=== PATIENT | male | born 1980 ===

== ENCOUNTER 2018-09-03 10:08 | Emergency (ER) | payer BC, OTHER ==
--- NOTE | 2018-09-03 11:12 | EDM.PDOC ---
ED HPI GENERAL MEDICAL PROBLEM - General Chief Complaint: General Stated Complaint: RAPID HEART RATE X 3 WEEKS Time Seen by Provider: 09/03/18 10:40 Source of Information: Reports: Patient, Family (), RN Notes Reviewed History Limitations: Reports: No Limitations - History of Present Illness INITIAL COMMENTS - FREE TEXT/NARRATIVE: The patient states that he developed pain to a relatively distinct area on his anterior right neck, just inferior to his larynx, about 3 weeks ago, which has persisted. 2-1/2 weeks ago he developed a fever, with a Tmax of 102.8, generalized body aches, fatigue, increased sleepiness, anorexia, and the sensation of tachycardia. The generalized weakness and fever resolved about 3 days ago, but the other symptoms have persisted. He states that he has had some shortness of breath on and off. He denies prior similar symptoms, although he states that he has had the sensation of palpitations and lightheadedness on and off for many years. He reports that the fingers of both of his hands got very pale a few days ago, and he notes that his mother has Raynaud's syndrome. He denies having a recent cough, chest pain, abdominal pain nausea, vomiting, constipation, diarrhea, or urinary symptoms. No tingling or numbness. He denies a sensation of walking on rubber legs. No prior medical evaluation for this complaint. The patient states that he does not take any prescribed medications on a regular basis, but that he has been taking ibuprofen twice a day, and an occasional Tylenol, to treat his fever and body aches. The patient does not have a PCP. Generalized Pain Score (Numeric/FACES): 3 - Related Data Allergies Allergy/AdvReac Type Severity Reaction Status Date / Time No Known Allergies Allergy Verified 09/03/18 10:27 Home Meds: Home Meds Propranolol [Inderal] 1 tab PO Q8H #20 tab 09/03/18 [Rx] Past Medical History HEENT History: Reports: Impaired Vision Other HEENT History: wears glasses - Past Surgical History HEENT Surgical History: Reports: Naso-Sinus Surgery (rhinoplasty), Oral Surgery (wisdom teeth extraction), Tonsillectomy Social & Family History - Tobacco Use Smoking Status *Q: Former Smoker Years of Tobacco use: 4 Packs/Tins Daily: 0.5 Month/Year Tobacco Last Used: Quit 2000 - Alcohol Use Alcohol Use History: No - Recreational Drug Use Recreational Drug Use: Yes Drug Use in Last 12 Months: No Recreational Drug Type: Reports: Marijuana/Hashish (Last smoked around 1999) - Living Situation & Occupation Living situation: Reports: , with Spouse, with Family (4 kids) Occupation: Employed ([employer]) ED ROS GENERAL - Review of Systems Review Of Systems: ROS reveals no pertinent complaints other than HPI. ED EXAM, GENERAL - Physical Exam Exam: See Below Exam Limited By: No Limitations General Appearance: Alert, No Apparent Distress, Thin, Other (Marfanoid appearance) Eye Exam: Bilateral Eye: EOMI, Normal Inspection Ears: Normal External Exam, Normal Canal, Hearing Grossly Normal, Normal TMs Nose: Normal Inspection, Normal Mucosa, No Blood Throat/Mouth: Normal Inspection, Normal Lips, Normal Teeth, Normal Gums, Normal Voice, No Airway Compromise, Other (High arched palate) Head: Atraumatic, Normocephalic Neck: Normal Inspection, Supple, Full Range of Motion, Other (Mild tenderness to the right anterior neck, just inferior to the larynx. No visible abnormalities at this site.). No: Lymphadenopathy (L), Lymphadenopathy (R) Respiratory/Chest: No Respiratory Distress, Lungs Clear, Normal Breath Sounds, No Accessory Muscle Use Cardiovascular: Normal Peripheral Pulses, No Edema, No Gallop, No JVD, No Murmur , No Rub, Tachycardia (regular) Peripheral Pulses: 4+: Radial (L), Radial (R) GI/Abdominal: Normal Bowel Sounds, Soft, Non-Tender, No Organomegaly, No Distention, No Abnormal Bruit, No Mass (Male) Exam: Deferred Rectal (Males) Exam: Deferred Back Exam: Normal Inspection, Full Range of Motion, NT Extremities: Normal Range of Motion, No Pedal Edema, Normal Capillary Refill, Other (Thumb sign negative. Wrist sign positive.) Neurological: Alert, Oriented, Normal Cognition, No Motor/Sensory Deficits Psychiatric: Normal Affect Skin Exam: Warm, Dry, Intact, Normal Color, No Rash EKG INTERPRETATION EKG Date: 09/03/18 Time: 11:26 Rhythm: Other (Sinus tachycardia) Rate (Beats/Min): 101 Portia: RAD-Right Portia Deviation P-Wave: Enlarged (LAE) QRS: Normal (LVH) ST-T: Normal QT: Normal Comparison: NA - No Prior EKG Course - Vital Signs Last Recorded V/S: Last Vital Signs Temp 36.8 C 09/03/18 10:24 Pulse 98 09/03/18 10:24 Resp 16 09/03/18 10:24 BP 128/91 H 09/03/18 10:24 Pulse Ox 100 09/03/18 10:24 Orthostatic Blood Pressure [ 125/83 Standing] Orthostatic Blood Pressure [ 134/93 Sitting] Orthostatic Blood Pressure [ 133/86 Supine] - Orders/Labs/Meds Labs: Laboratory Tests 09/03/18 09/03/18 09/03/18 Range/Units 11:25 11:25 11:25 WBC 9.28 H (4.23-9.07) K/mm3 RBC 4.58 L (4.63-6.08) M/mm3 Hgb 13.2 L (13.7-17.5) gm/L Hct 41.1 (40.1-51.0) % MCV 89.7 (79.0-92.2) fl MCH 28.8 (25.7-32.2) pg MCHC 32.1 L (32.2-35.5) g/dl RDW Std Deviation 37.7 (35.1-43.9) fL Plt Count 458 H (163-337) K/mm3 MPV 10.5 (9.4-12.3) fl Neutrophils % (Manual) 69 H (40-60) % Band Neutrophils % 0 (0-10) % Lymphocytes % (Manual) 20 (20-40) % Atypical Lymphs % 0 % Monocytes % (Manual) 10 (2-10) % Eosinophils % (Manual) 1 (0.8-7.0) % Basophils % (Manual) 0 L (0.2-1.2) Platelet Estimate Adequate RBC Morph Comment Normal D-Dimer, Quantitative 0.50 (0.19-0.50) mg/L Sodium 138 (136-145) mEq/L Potassium 4.3 (3.5-5.1) mEq/L Chloride 102 (98-107) mEq/L Carbon Dioxide 28 (21-32) mEq/L Anion Gap 12.3 (5-15) BUN 16 (7-18) mg/dL Creatinine 0.9 (0.7-1.3) mg/dL Est Cr Clr Drug Dosing 127.09 mL/min Estimated GFR (MDRD) > 60 (>60) mL/min BUN/Creatinine Ratio 17.8 (14-18) Glucose 92 (74-106) mg/dL Calcium 9.6 (8.5-10.1) mg/dL Magnesium 2.1 (1.8-2.4) mg/dl Total Bilirubin 0.7 (0.2-1.0) mg/dL AST 50 H (15-37) U/L ALT 163 H (16-63) U/L Alkaline Phosphatase 331 H (46-116) U/L Troponin I < 0.017 (0.00-0.056) ng/mL C-Reactive Protein 8.8 H* (<1.0) mg/dL Total Protein 8.4 H (6.4-8.2) g/dl Albumin 3.6 (3.4-5.0) g/dl Globulin 4.8 gm/dL Albumin/Globulin Ratio 0.8 L (1-2) Free T4 (0.76-1.46) ng/dL TSH 3rd Generation < 0.007 L (0.358-3.74) uIU/mL 09/03/18 Range/Units 16:10 WBC (4.23-9.07) K/mm3 RBC (4.63-6.08) M/mm3 Hgb (13.7-17.5) gm/L Hct (40.1-51.0) % MCV (79.0-92.2) fl MCH (25.7-32.2) pg MCHC (32.2-35.5) g/dl RDW Std Deviation (35.1-43.9) fL Plt Count (163-337) K/mm3 MPV (9.4-12.3) fl Neutrophils % (Manual) (40-60) % Band Neutrophils % (0-10) % Lymphocytes % (Manual) (20-40) % Atypical Lymphs % % Monocytes % (Manual) (2-10) % Eosinophils % (Manual) (0.8-7.0) % Basophils % (Manual) (0.2-1.2) Platelet Estimate RBC Morph Comment D-Dimer, Quantitative (0.19-0.50) mg/L Sodium (136-145) mEq/L Potassium (3.5-5.1) mEq/L Chloride (98-107) mEq/L Carbon Dioxide (21-32) mEq/L Anion Gap (5-15) BUN (7-18) mg/dL Creatinine (0.7-1.3) mg/dL Est Cr Clr Drug Dosing mL/min Estimated GFR (MDRD) (>60) mL/min BUN/Creatinine Ratio (14-18) Glucose (74-106) mg/dL Calcium (8.5-10.1) mg/dL Magnesium (1.8-2.4) mg/dl Total Bilirubin (0.2-1.0) mg/dL AST (15-37) U/L ALT (16-63) U/L Alkaline Phosphatase (46-116) U/L Troponin I (0.00-0.056) ng/mL C-Reactive Protein (<1.0) mg/dL Total Protein (6.4-8.2) g/dl Albumin (3.4-5.0) g/dl Globulin gm/dL Albumin/Globulin Ratio (1-2) Free T4 3.66 H (0.76-1.46) ng/dL TSH 3rd Generation (0.358-3.74) uIU/mL Meds: Medications Discontinued Medications Generic Name Dose Route Start Last Admin Trade Name Freq PRN Reason Stop Dose Admin Lactated Ringer's 1,000 mls @ 999 mls/hr 09/03/18 12:17 09/03/18 12:45 Ringers, Lactated IV 09/03/18 13:17 Not Given .BOLUS ONE Propranolol HCl 20 mg 09/03/18 15:54 09/03/18 16:42 Inderal PO 09/03/18 15:55 20 mg ONETIME ONE Administration - Re-Assessments/Exams Free Text/Narrative Re-Assessment/Exam: 09/03/18 11:10 The cause of the patient's symptoms is not immediately clear, but sounds viral in etiology. I have ordered orthostatics and an ECG, along with an influenza swab and blood work that includes a D-dimer and TSH level. Because of his history of fever, I also ordered a pair of blood cultures, although the patient is afebrile here in the ED. 09/03/18 12:18 The patient is orthostatic. I have ordered a 1 L bolus of LR, to be followed by repeat orthostatics. 09/03/18 12:44 Notified by Rachel BURLESON that the patient refused an IV, however, he has agreed to drink a lot of Powerade, after which we will repeat orthostatics. 09/03/18 13:20 After drinking a mixture of Powerade and water, the patient is still orthostatic. I will request additional fluid intake, followed by repeat orthostatics. 09/03/18 15:34 Following additional oral Powerade, the patient is no longer orthostatic. The patient's CBC is remarkable for a WBC count slightly elevated at 9.28, but with 0% bandemia. His hemoglobin is mildly elevated at 13.2, and his platelets are mildly elevated at 458,000. The remainder of his CBC is unremarkable. The patient's CMP is remarkable for an AST mildly elevated at 50, with an ALT mildly elevated at 163. His alkaline phosphatase is elevated at 331. The remainder of his CMP is unremarkable. The patient's magnesium level is normal. The patient's troponin is not elevated. The patient's D-dimer is not elevated. The patient's CRP is elevated at 8.8. The patient's TSH is undetectably low -<0.007. The patient's influenza swab returned negative. 09/03/18 15:49 I wanted to discuss the patient's lab findings with an Flooring Professional; no Endocrinologists are available in [place] at this time, therefore I discussed the case with Dr. Ryan Cox, an Flooring Professional at [facility], at 15:38. He felt that the patient appears to be suffering from subacute hyperthyroidism, possibly due to Grave disease versus thyroiditis. He recommended that we obtain a free T4 level, a total T3 level, a thyrotropin receptor antibody, antithyroid peroxidase antibody today, so that the Xarelto be available when he follows up. The patient will also require a repeat TSH in the next day or two. In the meantime, he recommended that we start the patient on propranolol 20 mg TID, to help calm the patient's symptoms. I will refer the patient to a PCP, who can order the repeat TSH, and facilitate transfer of the information to Endocrinology. 09/03/18 15:[address] Alexander Barillas at 15:56. The patient is to call his office tomorrow morning, to make an appointment to be seen either tomorrow or Saturday, at which time Dr. Barillas will order a repeat TSH level, and make arrangements for all of the lab results to be forwarded to Dr. Cox. In the meantime, I will have the patient contact the office of Dr. Cox, to make an appointment to be seen early this coming week. 09/03/18 16:18 Test results and the above conversations discussed with the patient and his . The patient is agreeable with the above plan. Departure - Departure Time of Disposition: 16:19 Disposition: Home, Self-Care 01 Condition: Good Clinical Impression: Hyperthyroidism - Discharge Information *PRESCRIPTION DRUG MONITORING PROGRAM REVIEWED*: Not Applicable *COPY OF PRESCRIPTION DRUG MONITORING REPORT IN PATIENT ELIZABETH: Not Applicable Prescriptions: Propranolol [Inderal] 1 tab PO Q8H #20 tab Instructions: Hyperthyroidism Referrals: Alexander Power MD [Physician] - Ryan Cox MD [Ordering Only Provider] - Forms: ED Department Discharge Additional Instructions: You were seen in the emergency room for anterior neck pain, fever, generalized body aches, increased heart rate, increased sleepiness, decreased appetite, and increased fatigue. Workup in the ER included blood work, 2 sets of blood cultures, an influenza swab, positional blood pressure checks, and an ECG. Your workup found that you are hyperthyroid = overactive thyroid function. Your case was discussed with the Flooring Professional Dr. Ryan Cox, at [facility]. Additional blood tests were obtained. You have been started on the beta cole propranolol. A prescription for propranolol has been sent to [facility], located in the [facility], across the street from the hospital. Take one tablet of propranolol every 8 hours, starting around midnight tonight, as prescribed. Your workup also found that you were intravascularly depleted. Make sure that you stay adequately hydrated. Gatorade or Powerade are best. Contact the office of Dr. Alexander Barillas, to make an appointment to be seen either tomorrow or day after tomorrow ( or Saturday). During that visit, your TSH level will be repeated. Contact the office of Dr. yRan Cox, to make an appointment to be seen in [place] early this coming week - Saturday or Saturday. Dr. Barillas will make sure that all of your lab results are forwarded to Dr. Cox. If any other problems, please do not hesitate to return to the ER.
[2018-09-03] MEDS ORDERED: Lactated Ringers 1,000 ML IV ONE (12:17)
[2018-09-03] MEDS ORDERED: Propranolol 20 MG Tab PO ONE (15:54)
== END 2018-09-03 16:45 | disposition home or self-care (01) ==
LOC: JD.ED 10:08
DX: E05.90 Thyrotoxicosis, unspecified without thyrotoxic crisis or storm (principal); Z87.891 Personal history of nicotine dependence
CPT/HCPCS: 36415; 80053; 83520; 83735; 84439; 84443; 84480; 84484; 85007; 85027; 85379; 86140; 86376; 87040; 87804; 93005; 99285; A9270